=== PATIENT | male | born 1985 | race Caucasian/White ===

== ENCOUNTER 2017-04-21 10:30 | Emergency (ER) | payer OTHER ==
[2017-04-21 10:36] VITALS: BP 124/77; PULSE 91; RESP 18; TEMP 98.8
--- NOTE | 2017-04-21 11:16 | ED ---
General Adult HPI - General Chief complaint: Dental/Oral Stated complaint: dental pain Time Seen by Provider: 04/21/17 10:38 Source: patient, family, RN notes reviewed Mode of arrival: ambulatory Limitations: no limitations - History of Present Illness Initial comments: Chief complaint history of present illness 31-year-old male here with complaint of irritation around his gums. Gen. poor dental health. This been ongoing with fractured teeth for several months. Recently the openings of the 70 mg on the tongue are irritated. No fever - Related Data Previous Rx's Medication Instructions Recorded Penicillin V Potassium [Pen Vee K] 500 mg PO QID #40 tab 04/21/17 Allergies Allergy/AdvReac Type Severity Reaction Status Date / Time No Known Allergies Allergy Verified 04/21/17 10:36 Review of Systems ROS Statement: Those systems with pertinent positive or pertinent negative responses have been documented in the HPI. Review of systems no other complaints other than irritation to the gums and teeth. All systems are reviewed. Patient denies any chronic medical problems. Surgeries tonsils and adenoids. Family history no cancers. Patient denies any ALLERGIES. He does smoke strongly encouraged to stop strings alcohol socially. ROS Other: All systems not noted in ROS Statement are negative. Past Medical History Past Medical History: No Reported History History of Any Multi-Drug Resistant Organisms: None Reported Past Surgical History: No Surgical Hx Reported Past Psychological History: No Psychological Hx Reported Smoking Status: Current every day smoker Past Alcohol Use History: None Reported Past Drug Use History: None Reported General Exam - General Exam Comments Initial Comments: General: The patient is awake and alert, complains of discomfort to his gums and salivary gland openings on the tongue and on his cheeks. Vital signs temperature 98.8 pulse 91 respiratory rate 18 pulse ox 98% room air blood pressure 124/77 Eye: Pupils are equal, round and reactive to light, extra-ocular movements are intact ; there is normal conjunctiva bilaterally. No signs of icterus. Ears, nose, mouth and throat: There are moist mucous membranes, generally very poor dentition, gingivitis upper and lower gums. Mild inflammation of Stensen's ducts. Mild tenderness to the 70 mg under the tongue and mandible. Full range of motion of the mandible. No complaints of chest pain no shortness of breath, GI/ complaints or problems. Limitations: no limitations Course Vital Signs 04/21/17 10:34 Temperature 98.8 F Pulse Rate 91 Respiratory 18 Rate Blood Pressure 124/77 O2 Sat by Pulse 98 Oximetry Medical Decision Making - Medical Decision Making Patient advised to use frequent rinses and warm water. To be placed on Pen-Vee K 500 4 times a day for general gingivitis and dental caries. He'll be given follow-up paperwork for local dental clinic. Advised to stop smoking. He'll be placed on Pen-Vee K 500 4 times a day for 10 days. Disposition Clinical Impression: Gingivitis due to dental plaque, Dental caries Disposition: HOME SELF-CARE Condition: Fair Instructions: Dental Caries (ED), Gingivitis (ED) Additional Instructions: Frequent warm water rinses. Pen-Vee K 504 times a day for 10 days. Follow-up family physician if he doesn't have a family physician follow-up with on-call Dr. Marcus Prescriptions: Penicillin V Potassium [Pen Vee K] 500 mg PO QID #40 tab Referrals: None,Stated [Primary Care Provider] - 1-2 days Time of Disposition: 11:15
== END 2017-04-21 11:20 | disposition home or self-care (01) ==
LOC: EC 10:30
DX: K05.10 Chronic gingivitis, plaque induced (principal); K02.9 Dental caries, unspecified; F17.200 Nicotine dependence, unspecified, uncomplicated
CPT/HCPCS: 99282